=== PATIENT | female | born 1980 | race Caucasian/White ===

== ENCOUNTER 2018-03-30 06:19 | Emergency (ER) | payer SELFPAY ==
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
[2018-03-30 06:42] VITALS: BP 131/66; TEMP 99.1; O2SAT 98
== END 2018-03-30 06:45 | disposition home or self-care (01) ==
LOC: ER 06:19
DX: Z04.8 Encounter for examination and observation for other specified reasons (principal)